=== PATIENT | female | born 1960 | race Caucasian/White ===

== ENCOUNTER → 2018-05-08 | Outpatient (CLI) | payer MEDICARE, BC ==
[~2018-05-08] VITALS: Ht 165.1 cm; Wt 64.4 kg
[~2018-05-08] MED LIST: AMBIEN 5 MG TABL5 M1 PO; ATIVAN1 MG PO; CARAFATE 1 GM TA1 G1 PO; DILAUDID 2 MG TA2 MG PO; DURAGESIC1 EAC3 TRANSDERM; ENOXAPARIN120 MG/0.1 SUBQ; FLEXERIL PO; GABAPENTIN 100100 MG PO; KEPPRA750 MG PO; MS CONTIN15 MG PO; NORTRIPTYLINE H50 MG PO; OMEPRAZOLE40 MG PO; OXCARBAZEPINE300 M1 PO; OXYCONTIN10 M1 PO; PEPCID20 MG PO; PHENERGAN 25 MG25 M1 PO; SIMVASTATIN40 MG PO; SINEMET 25-1001 EAC1 PO; VOLTAREN GEL 1100 G2 TOP; ZOFRAN ODT4 MG PO
[2018-05-08 08:01] VITALS: BP 111/43
[2018-05-08 08:29] LABS: HEMOGLOBIN 13.8 gm/dL (12.0-15.0); MCH 30.9 pg (26.0-34.0); MCV 93.7 fL (80.0-100.0); MPV 8.3 fl. (7.2-11.1); RBC 4.48 mil/uL (4.20-5.00); WBC 7.8 thou/uL (4.0-11.0)
[2018-05-08 08:41] LABS: CALCIUM 9.2 mg/dL (8.5-10.1); CREATININE 0.7 mg/dL (0.6-1.3); POTASSIUM 4.7 mmol/L (3.5-5.1)
[2018-05-08 08:43] LABS: INR 1.1; PROTIME 10.3 Seconds (9.20-11.50)
[2018-05-08 08:46] LABS: ALBUMIN 3.7 g/dL (3.4-5.0); TOTAL BILIRUBIN 0.4 mg/dL (<0.1-1.0); TOTAL PROTEIN 8.3 g/dL (6.4-8.2)
== END ==
LOC: M.INT 06:52
PROVIDERS: Radiology Diagnostic Radiology
DX: Z45.2 Encounter for adjustment and management of vascular access device (principal); K94.23 Gastrostomy malfunction; Z86.73 Personal history of transient ischemic attack (TIA), and cerebral infarction without residual deficits; Z98.890 Other specified postprocedural states; G40.409 Other generalized epilepsy and epileptic syndromes, not intractable, without status epilepticus; G43.909 Migraine, unspecified, not intractable, without status migrainosus; M79.7 Fibromyalgia; Z90.49 Acquired absence of other specified parts of digestive tract

== ENCOUNTER → 2019-09-19 | Outpatient (CLI) | payer MEDICARE, BC ==
[~2019-09-19] VITALS: Ht 167.6 cm; Wt 78.9 kg
[2019-09-19 12:03] VITALS: BP 126/75
== END | disposition home or self-care (01) ==
LOC: M.INT 11:00
DX: Z45.2 Encounter for adjustment and management of vascular access device (principal); T80.212A Local infection due to central venous catheter, initial encounter; G43.909 Migraine, unspecified, not intractable, without status migrainosus; F17.210 Nicotine dependence, cigarettes, uncomplicated; Z86.73 Personal history of transient ischemic attack (TIA), and cerebral infarction without residual deficits; Z98.890 Other specified postprocedural states; Z79.899 Other long term (current) drug therapy; Y83.8 Other surgical procedures as the cause of abnormal reaction of the patient, or of later complication, without mention of misadventure at the time of the procedure